=== PATIENT | female | born 1980 | race Caucasian/White ===

== ENCOUNTER 2016-12-24 11:04 | Emergency (ER) | payer OTHER ==
--- NOTE | ~2016-12-24 | CT98 ---
[facility] A Service of [facility] RADIOLOGY TEXT RESULTS PATIENT: NADIA BERNABE LOCATION: SED : 84 UNIT #: [id number] AGE: [address]: Linwood Lee MD SEX: F ORDER DR: [id number] [place] [id number] MR#: [id number] Acc #: [id number] NAME: NADIA BERNABE : 1980 SEX: F STUDY DATE/TIME: 12/24/2016 11:21 UNIT: SED ROOM: STUDY DESCRIPTION: CT Lumbar Spine Wo Cont Attending Physician: Linwood Lee M.D. Ordering Physician: Linwood Lee M.D. Primary Care Physician: Gloria Trejo M.D. MEDICAL IMAGING REPORT This report is preliminary unless electronic signature is present. EXAM CT lumbar spine HISTORY Low back pain since yesterday after bending over and picking up an object. The pain shoots down left leg. TECHNIQUE This CT exam was performed with one or more of the following radiation dose reduction techniques: automatic exposure control, adjustment of mA and/or kV according to patient size, and iterative reconstruction. Axial 2 mm images were obtained from T11 - S1. Sagittal and coronal reconstructions were generated. FINDINGS The alignment is normal. The vertebral bodies appear normal. The paraspinal soft tissues are normal. The T12-L1, L1-L2, L2-L3, and L3-L4 disc spaces appear normal. At L4-L5, there is a minimal generalized bulge. At L5-S1, there may be a left paracentral disk protrusion. It is very difficult to distinguish between the thecal sac and the disk material because of the graininess of the images. IMPRESSION 1. Minimal disk bulge, L4-L5. 2. At L5-S1, there may be a central disk protrusion. It is very difficult to distinguish between the disk material and the thecal sac since they are very similar in density. The images are somewhat STS. [facility] A Service of [facility] RADIOLOGY TEXT RESULTS PATIENT: NADIA BERNABE LOCATION: SED : 84 UNIT #: [id number] AGE: [address]: Linwood Lee MD SEX: F ORDER DR: grainy due to patient's size. 3. The bony structures are all normal. Dictated by... Linwood Elizalde M.D. THIS IS AN ELECTRONICALLY VERIFIED REPORT Linwood Elizalde M.D. at 12/24/2016 2:47 PM RAMYA/shelton TD: 12/24/2016 14:30 JOB #: [id number] MEDICAL IMAGING REPORT Page 1 of 1
[~2016-12-24 11:04] MED LIST: AFRIN3 ML NS; AUGMENTIN875 MG PO; AZO DINE95 MG PO; BACLOFEN10 MG PO; CIPRO PO; CIPRO250 MG PO; DARVOCET-N 1001 TAB PO; DEX; LISINOPRIL10 MG PO; MEDROL DOSEPAK4 MG PO; MEDROL PO; MIDRIN CAPSULE1 CAP PO; NEO; NEURONTIN100 MG PO; NO MEDICATIONS; PREDNISONE PO; PRILOSEC; PYRIDIUM100 MG PO; TRAMADOL HCL50 M1 PO; TYLOX 5/500 CAP1 CAP PO; VICODIN 5/500 T1 TAB PO; ZYRTEC-D TABLE1 EACH PO; [UNRECOGNIZED DRUG - OTHER]
[2016-12-24 11:43] LABS: URINE SOURCE CLEAN CATCH
[2016-12-24 11:46] LABS: URINE APPEARANCE CLEAR; URINE BILIRUBIN NEG (NEG); URINE BLOOD NEG (NEG); URINE COLOR YELLOW; URINE GLUCOSE NEG (NORM); URINE KETONE NEG (NEG); URINE LEUKOCYTE ESTERASE NEG (NEG); URINE NITRATE NEG (NEG); URINE PROTEIN NEG (NEG); URINE SPECIFIC GRAVITY <=1.005 (1.003-1.035); URINE UROBILINOGEN 0.2 MG/DL (NORM)
[2016-12-24 11:49] LABS: MICRO INDICATED? NO
== END 2016-12-24 13:25 | disposition home or self-care (01) ==
LOC: SED 11:04
PROVIDERS: Emergency Medicine
DX: M51.27 Other intervertebral disc displacement, lumbosacral region (principal); I10 Essential (primary) hypertension; E66.9 Obesity, unspecified
CPT/HCPCS: 72131; 81003; 84703; 96372; 99284; J1170; J2550